=== PATIENT | female | born 1980 | race Caucasian/White ===

== ENCOUNTER 2017-08-07 07:30 | Inpatient (IN) | payer OTHER ==
[2017-08-01 14:59] LABS: BASOPHILS # (AUTO) 0.05 K/uL (0.00-0.20); BASOPHILS % (AUTO) 0.9 % (0.0-2.0); EOSINOPHILS % (AUTO) 2.16 % (1.0-6.0); HEMATOCRIT 36.4 % (36-46); HEMOGLOBIN 11.9 g/dL (12.0-16.0); LYMPHOCYTES # (AUTO) 1.3 K/uL (1.0-4.8); LYMPHOCYTES % (AUTO) 27.3 % (22.0-44.0); MEAN CORPUSCULAR HGB CONC 32.7 G/dL (31.0-37.0); MEAN CORPUSCULAR VOLUME 92 fL (80-100); MONOCYTES # (AUTO) 0.3 K/uL (0.1-1.0); MONOCYTES % (AUTO) 6.9 % (2.0-9.0); NEUTROPHILS # (AUTO) 3.1 K/uL (1.8-7.7); NEUTROPHILS % (AUTO) 62.7 % (40.0-70.0); PLATELET COUNT (AUTO) 231 K/uL (150-450); RED BLOOD CELL COUNT(AUTO) 3.97 MIL/uL (4.00-5.20); RED CELL DISTRIBUTION WIDTH 14.5 % (11.5-14.5); WHITE BLOOD COUNT (AUTO) 4.9 K/uL (4.5-11.0)
[2017-08-01 15:23] LABS: ANION GAP 10 mmol/L (8-16); CALCIUM, TOTAL 8.6 mg/dL (8.8-10.5); CARBON DIOXIDE 26 mmol/L (22-29); CHLORIDE 107 mmol/L (98-107); CREATININE 0.66 mg/dL (0.60-1.30); GLOMERULAR FILTR. RATE CALC > 60 mL/min (>60); SODIUM SERUM 143 mmol/L (136-145); UREA NITROGEN, BLOOD 11 mg/dL (7-18)
[2017-08-01 15:29] LABS: RBC MORPHOLOGY COMMENT NORMAL RBC MORPH
[2017-08-01 15:30] LABS: PROTHROMBIN TIME 10.1 SEC (9.4-11.6)
[2017-08-01 15:32] LABS: ALANINE AMINOTRANSFERASE 20 U/L (12-78); ALBUMIN 3.8 g/dL (3.4-5.0); ASPARTATE AMINOTRANSFERASE 10 U/L (15-37); BILIRUBIN,TOTAL 0.2 mg/dL (0.1-1.0); TOTAL PROTEIN, SERUM 7.4 g/dL (6.4-8.2)
[~2017-08-07] VITALS: Ht 177.8 cm; Wt 95.5 kg
[~2017-08-07 07:30] MED LIST: CeFAZolin 2 GM/DEXTROSE 50 ML IV ONE; GABA-531 PO; HYDR-309 PO; RINGERS SOLUTION,LACTATED 1,000 ML IV ONE; TRAM50TA4 PO; VENL50TA44 PO
[2017-08-07] MEDS ORDERED: CeFAZolin 2 GM/DEXTROSE 50 ML IV ONE (08:14)
[2017-08-07] MEDS ORDERED: ACETAMINOPHEN 1000 MG/ISO-OSM 100 ML IV ONE (10:38)
[2017-08-07] MEDS ORDERED: LORazepam 2 MG TABLET PO PRN (10:45)
[2017-08-07] MEDS ORDERED: HYDROmorphone 2 MG/ML SYRINGE IVP PRN (10:45)
[2017-08-07] MEDS ORDERED: MEPERIDINE-PF 25 MG/ML SYRINGE IVP PRN (10:45)
[2017-08-07] MEDS ORDERED: FentaNYL CITRATE-PF 100 MCG/2 ML VIAL IVP PRN (10:45)
[2017-08-07] MEDS ORDERED: ZOLPIDEM TARTRATE 5 MG TABLET PO PRN (10:45)
[2017-08-07] MEDS ORDERED: PROMETHAZINE HCL 25 MG/ML VIAL IM PRN (10:45)
[2017-08-07] MEDS ORDERED: ONDANSETRON HCL 4 MG/2 ML VIAL IVP PRN (10:45)
[2017-08-07] MEDS: ACETAMINOPHEN 1000 MG/ISO-OSM 100 ML IV SCH ×3 (10:52→23:14)
[2017-08-07] MEDS ORDERED: VENL-68 PO (10:55)
[2017-08-07] MEDS ORDERED: BUPIVACAINE LIPOSOME/PF 1.3%-13.3MG/ML SUSPENSION 20 ML VIAL INJ ONE ×2 (11:30)
[2017-08-07] MEDS ORDERED: BUPIVACAINE HCL/PF 0.5% 30 ML VIAL ONE (11:42)
[2017-08-07] MEDS ORDERED: GABAPENTIN 300 MG CAPSULE PO SCH (13:00)
[2017-08-07 13:50] VITALS: BP 141/98
[2017-08-07] MEDS: HYDROmorphone 2 MG/ML SYRINGE IVP PRN ×3 (14:20→19:55)
[2017-08-07] MEDS: BENZOCAINE/MENTHOL LOZENGE [8 LOZENGES/PACKET] PO PRN (15:44)
[2017-08-07 16:10] VITALS: BP 124/76
[2017-08-07] MEDS: GABAPENTIN 300 MG CAPSULE PO SCH ×2 (16:33→20:56)
[2017-08-07] MEDS: CeFAZolin 1 GM/DEXTROSE 50 ML IV SCH (18:49)
[2017-08-07 19:58] VITALS: BP 125/72
[2017-08-07] MEDS ORDERED: OXYGEN THERAPY IH SCH (20:00)
[2017-08-07] MEDS: OxyCODONE HCL 10 MG ER TABLET PO SCH (20:56)
[2017-08-07] MEDS: TraMADol HCL 50 MG TABLET PO SCH (20:56)
[2017-08-07] MEDS ORDERED: FentaNYL CITRATE-PF 100 MCG/2 ML VIAL IVP ONE (22:47)
[2017-08-07] MEDS ORDERED: KETAMINE HCL 50 MG/ML 10 ML VIAL IVP ONE (22:47)
[2017-08-07] MEDS ORDERED: DEXAMETHASONE SOD PHOS 4 MG/ML VIAL IVP ONE (22:47)
[2017-08-07] MEDS ORDERED: LIDOCAINE HCL/PF 2% 5 ML VIAL IM ONE (22:47)
[2017-08-07] MEDS ORDERED: MIDAZOLAM HCL 2 MG/2 ML VIAL IVP ONE (22:47)
[2017-08-07] MEDS ORDERED: ONDANSETRON HCL 4 MG/2 ML VIAL IVP ONE (22:47)
[2017-08-07] MEDS ORDERED: SUCCINYLCHOLINE CHLORIDE 20 MG/ML 10 ML VIAL IVP ONE (22:47)
[2017-08-07] MEDS ORDERED: PROPOFOL 1% 20 ML VIAL IVP ONE (22:47)
[2017-08-07 23:31] VITALS: BP 126/72
[2017-08-08] MEDS: HYDROmorphone 2 MG/ML SYRINGE IVP PRN ×3 (00:08→07:38)
[2017-08-08] MEDS: BENZOCAINE/MENTHOL LOZENGE [8 LOZENGES/PACKET] PO PRN (01:33)
[2017-08-08] MEDS: CeFAZolin 1 GM/DEXTROSE 50 ML IV SCH (02:44)
[2017-08-08 03:35] VITALS: BP 116/73
[2017-08-08] MEDS: ACETAMINOPHEN 1000 MG/ISO-OSM 100 ML IV SCH (05:16)
[2017-08-08 07:41] VITALS: BP 122/78
[2017-08-08] MEDS: TraMADol HCL 50 MG TABLET PO SCH (08:33)
[2017-08-08] MEDS: OxyCODONE HCL 10 MG ER TABLET PO SCH (08:33)
[2017-08-08] MEDS: GABAPENTIN 300 MG CAPSULE PO SCH (08:33)
[2017-08-08] MEDS ORDERED: VENLAFAXINE HCL 150 MG ER CAPSULE PO SCH (09:00)
[2017-08-08] MEDS ORDERED: HYDROCODONE/ACETAMINOPHEN 10-325 MG TABLET PO PRN (11:00)
== END 2017-08-08 10:34 | disposition home or self-care (01) | DRG 517 ==
LOC: 4E 08:18
PROVIDERS: ADMIT Orthopaedic Surgery Orthopaedic Surgery of the Spine; ATTEND Orthopaedic Surgery Orthopaedic Surgery of the Spine
PROC: 0RP604Z Removal of Internal Fixation Device from Thoracic Vertebral Joint, Open Approach (ICD-10-PCS; principal; 2017-08-07 10:00)
DX: M96.0 Pseudarthrosis after fusion or arthrodesis (principal); F41.9 Anxiety disorder, unspecified; Z88.2 Allergy status to sulfonamides; Z88.1 Allergy status to other antibiotic agents; Z91.040 Latex allergy status; Z79.899 Other long term (current) drug therapy; Z79.891 Long term (current) use of opiate analgesic; Y83.4 Other reconstructive surgery as the cause of abnormal reaction of the patient, or of later complication, without mention of misadventure at the time of the procedure; Y93.89 Activity, other specified; Y92.89 Other specified places as the place of occurrence of the external cause
CPT/HCPCS: 87081; 88300; 97161; 97165; 97530; C9290; G0238; J0131; J0330; J0690; J1100; J1170; J2250; J2405; J2704; J3010; J3490; J7120